=== PATIENT | male | born 1960 | race Caucasian/White ===

== ENCOUNTER 2023-11-11 14:49 | Outpatient (REF) | payer OTHER, SELFPAY ==
[2023-11-11 19:05] LABS: Abs Immature Grans 0.01 10^3/uL (0.0-0.06); Absolute Basophil Count 0.11 10^3/uL (0.0-0.2); Absolute Eosinophil Count 0.19 10^3/uL (0.0-0.7); Absolute Lymphocyte Count 2.28 10^3/uL (1.2-3.4); Absolute Monocyte Count 0.87 10^3/uL (0.1-0.8); Absolute Neutrophil Count 4.58 10^3/uL (1.2-6.7); Basophils % 1.4; Eosinophils % 2.4; HCT 47.9 % (40.0-50.0); Immature Grans % 0.1; Lymphocytes % 28.4; MCH 30.3 pg (27.0-33.0); MCHC 33.4 % (32.0-36.0); MCV 91 fL (80-95); MPV 10.1 fL (8.0-11.0); Monocytes % 10.8; Neutrophils % 56.9; Platelet Count 333 10^3/uL (130-400); RBC 5.28 10^6/uL (4.36-5.78); RDW 12.9 % (11.8-14.1); RDW-SD 42.5 fL; WBC 8.04 10^3/uL (4.4-10.8)
[2023-11-11 19:24] LABS: Hemoglobin A1C 6.8 % (<5.7)
[2023-11-11 19:25] LABS: ALT 38 U/L (16-63); AST 20 U/L (15-37); Albumin 3.9 g/dL (3.4-5.0); Alkaline Phosphatase 138 U/L (46-116); Anion Gap 6.3 mmol/L (3-11); BUN 14 mg/dL (7-18); Bilirubin, Total 0.4 mg/dL (0.2-1.0); CO2 29.7 mmol/L (21.0-32.0); CREATININE 1.2 mg/dL (0.70-1.30); Calcium 8.7 mg/dL (8.5-10.1); Calculated LDL 30 mg/dL (<100); Chloride 103 mmol/L (98-107); Cholesterol 141 mg/dL (<200); Estimated GFR 67.11 (mL/min/1.73m2); Glucose 121 mg/dL (74-106); HDL Cholesterol 35 mg/dL (40-60); Potassium 4.4 mmol/L (3.5-5.1); Sodium 139 mmol/L (136-145); TSH (W/Ref FT4) 1.98 uIU/mL (0.36-3.74); Total Protein 7.7 g/dL (6.4-8.2); Triglyceride 380 mg/dL (<150)
== END 2023-11-11 14:50 | disposition home or self-care (01) ==
LOC: NCHCN 14:49
PROVIDERS: PCP Nurse Practitioner Family; Visit Provider Nurse Practitioner Family
DX: Z00.00 Encounter for general adult medical examination without abnormal findings (principal)
CPT/HCPCS: 80053; 80061; 83036; 84443; 85025

== ENCOUNTER 2023-12-02 12:24 | Outpatient (REF) | payer OTHER, SELFPAY ==
[2023-12-02 18:43] LABS: Calculated LDL 28 mg/dL (<100); Cholesterol 135 mg/dL (<200); HDL Cholesterol 35 mg/dL (40-60); Hemoglobin A1C 6.7 % (<5.7); Triglyceride 362 mg/dL (<150)
[2023-12-02 19:05] LABS: Vitamin D 25 Total 35.9 ng/mL (30-100)
== END 2023-12-02 12:25 | disposition home or self-care (01) ==
LOC: NCHCN 12:24
PROVIDERS: PCP Nurse Practitioner Family; Visit Provider Nurse Practitioner Family
DX: R73.9 Hyperglycemia, unspecified (principal); Z00.00 Encounter for general adult medical examination without abnormal findings; E78.2 Mixed hyperlipidemia
CPT/HCPCS: 80061; 82306; 83036

== ENCOUNTER 2024-01-17 11:54 | Outpatient (REF) | payer OTHER, SELFPAY ==
[2024-01-17 15:40] LABS: Prothrombin Time 10.5 sec (9.1-11.1)
[2024-01-17 15:44] LABS: GGT 25 U/L (15-85)
== END 2024-01-17 11:55 | disposition home or self-care (01) ==
LOC: NCHCN 11:54
PROVIDERS: PCP Nurse Practitioner Family; Visit Provider Nurse Practitioner Family
DX: R74.8 Abnormal levels of other serum enzymes (principal); K76.0 Fatty (change of) liver, not elsewhere classified
CPT/HCPCS: 82977; 85610

== ENCOUNTER 2024-10-30 13:47 | Outpatient (REF) | payer OTHER, SELFPAY ==
[2024-10-30 15:54] LABS: Anion Gap 8.9 mmol/L (3-11); BUN 13 mg/dL (7-18); CO2 27.1 mmol/L (21.0-32.0); CREATININE 1.2 mg/dL (0.70-1.30); Calcium 8.9 mg/dL (8.5-10.1); Chloride 105 mmol/L (98-107); Glucose 172 mg/dL (74-106); Sodium 141 mmol/L (136-145)
== END 2024-10-30 13:48 | disposition home or self-care (01) ==
LOC: NCHCN 13:47
PROVIDERS: PCP Nurse Practitioner Family; Visit Provider Nurse Practitioner Family
DX: E11.9 Type 2 diabetes mellitus without complications (principal)
CPT/HCPCS: 80048; 83036

== ENCOUNTER 2025-05-07 17:12 | Outpatient (REF) | payer BC, SELFPAY ==
[2025-05-07 18:53] LABS: ALT 33 U/L (16-63); AST 19 U/L (15-37); Albumin 3.9 g/dL (3.4-5.0); Alkaline Phosphatase 165 U/L (46-116); Anion Gap 8.9 mmol/L (3-11); BUN 15 mg/dL (7-18); Bilirubin, Total 0.4 mg/dL (0.2-1.0); CO2 25.1 mmol/L (21.0-32.0); Calcium 8.4 mg/dL (8.5-10.1); Calculated LDL 49 mg/dL (<100); Chloride 106 mmol/L (98-107); Cholesterol 115 mg/dL (<200); Estimated GFR 82.49 (mL/min/1.73m2); Glucose 102 mg/dL (74-106); HDL Cholesterol 34 mg/dL (>or=40); Potassium 3.9 mmol/L (3.5-5.1); Sodium 140 mmol/L (136-145); Total Protein 6.9 g/dL (6.4-8.2); Triglyceride 161 mg/dL (<150)
[2025-05-07 19:05] LABS: Hemoglobin A1C 6.4 % (<5.7)
[2025-05-07 19:26] LABS: COMMENT (LAB VIEW ONLY) 180.16 mg/dL; Microalb ug/mg Crea 25.0 ug/mg Cr
[2025-05-08 19:30] LABS: Hepatitis C Ab w Rflx HCV PCR Negative (Negative)
== END 2025-05-07 17:13 | disposition home or self-care (01) ==
LOC: NCHCN 17:12
PROVIDERS: PCP Nurse Practitioner Family; Visit Provider Nurse Practitioner Family
DX: E11.9 Type 2 diabetes mellitus without complications (principal); Z00.00 Encounter for general adult medical examination without abnormal findings
CPT/HCPCS: 80053; 80061; 86803; 82043; 82570; 83036